=== PATIENT | male | born 1940 | race Caucasian/White ===

== ENCOUNTER 2016-09-09 11:35 | Emergency (ER) | payer BC ==
--- NOTE | 2016-09-16 17:50 | ER ---
ADMIT: 09/09/2016 RM/LOC: ER [facility] MR#: [id number] [id number] [address] [place] [address] Emergency Room Report SEX: M AGE: 76 : 1940 DATE: 09/09/2016 ADDENDUM: This patient comes to the ER because he has pain in his right foot and also his right ankle. He works at [employer]. The shoes he was wearing caused him to have a blister in his right ankle/right foot area and now he has pain and swelling. On physical exam, he has an early cellulitis to the area. I wrote a prescription for Keflex and [place]. He will need to do minimal walking on that foot for the next week, but then to follow up with Dr. Wilkinson if it is not getting better. Please see my T-sheet. AYLIN Webb / Ivan Warren MD / melaniel JOB #: [id number] CC: Ivan Warren MD, Attending Physician Talib Wilkinson MD, Family Physician
== END 2016-09-09 13:10 | disposition home or self-care (01) ==
LOC: ER 11:35
DX: L03.115 Cellulitis of right lower limb (principal)